=== PATIENT | female | born 1985 | race Caucasian/White ===

== ENCOUNTER 2016-12-26 15:17 | Outpatient (CLI) | payer BC ==
[~2016-12-26 15:17] MED LIST: CELEXA40 MG PO; PRENATAL VIT PO; UNISOM PO; ZANTAC300 MG PO
[2017-02-08] MEDS ORDERED: COLACE 100MG C100 MG PO (14:20)
== END 2016-12-26 16:34 | disposition home or self-care (01) ==
LOC: GENOP 15:17
DX: O36.8130 Decreased fetal movements, third trimester, not applicable or unspecified (principal); O42.913 Preterm premature rupture of membranes, unspecified as to length of time between rupture and onset of labor, third trimester; Z3A.32 32 weeks gestation of pregnancy
CPT/HCPCS: 59025; 81001; 82962; 83518; 87086

== ENCOUNTER 2017-01-24 18:51 | Observation (INO) | payer BC ==
[~2017-01-24] VITALS: Ht 162.6 cm; Wt 102.1 kg
[2017-01-24 19:38] LABS: HEMOGLOBIN 12.5 gm/dl (12.3-15.3); RED BLOOD COUNT 4.2 M/UL (4.00-5.10); WHITE BLOOD COUNT 11.3 K/UL (4.5-11.0)
[2017-01-24 21:04] LABS: BUN/CREATININE RATIO 18 (0-10)
[2017-02-08] MEDS ORDERED: COLACE 100MG C100 MG PO (14:20)
== END 2017-01-25 08:22 | disposition home or self-care (01) ==
LOC: ER1 18:51 → ZEROF 20:13 → OB 20:13
PROVIDERS: Specialist/Technologist Athletic Trainer; ADMIT Obstetrics & Gynecology
DX: O99.343 Other mental disorders complicating pregnancy, third trimester (principal); F41.9 Anxiety disorder, unspecified; O99.513 Diseases of the respiratory system complicating pregnancy, third trimester; R06.02 Shortness of breath; Z79.899 Other long term (current) drug therapy; Z79.84 Long term (current) use of oral hypoglycemic drugs; Z88.0 Allergy status to penicillin; Z88.6 Allergy status to analgesic agent; Z86.69 Personal history of other diseases of the nervous system and sense organs; Z87.440 Personal history of urinary (tract) infections; Z87.891 Personal history of nicotine dependence
CPT/HCPCS: 36415; 36600; 59025; 80053; 81001; 82550; 82553; 82803; 82962; 83605; 83874; 84484; 85025; 85610; 85730; 93005; 96360; 96361; 96374; 99285; G0378; J2060; J7030; Q0177